=== PATIENT | female | born 1965 | race American Indian/Alaskan Native ===

== ENCOUNTER 2017-08-29 08:01 | Outpatient (CLI) | payer OTHER ==
--- NOTE | 2017-08-29 09:15 | XRay Report ---
Bilateral wrist: History: Wrist pain. Findings: No articular abnormality. No fracture or dislocation. Impression: Essentially negative right and left wrist.
== END 2017-08-29 08:02 | disposition home or self-care (01) ==
LOC: SPVIMAG 08:01
PROVIDERS: ATTEND Orthopaedic Surgery Sports Medicine
DX: M25.531 Pain in right wrist (principal); M25.532 Pain in left wrist

== ENCOUNTER 2020-04-04 12:10 | Outpatient (CLI) | payer BC ==
--- NOTE | 2020-04-04 13:06 | XRay Report ---
LEFT FOOT 3 VIEWS INDICATION: PAIN IN LEFT FOOT. COMPARISON: None. IMPRESSION: No acute osseous or soft tissue abnormality. Mild osteoarthritic narrowing is noted a t the first metatarsophalangeal joint. Mild osteoarthritic changes in the midfoot. Moderate plantar s pur. Signer Name: Samir Sanchez Jr, MD Signed: 04/04/2020 1:02 PM Workstation Name: [id number]
--- NOTE | 2020-04-04 13:57 | Ultrasound Report ---
ULTRASOUND THYROID INDICATION / CLINICAL INFORMATION: LOCALIZED SWELLING,MASS AND LUMP,NECK. COMPARISON: None available. FINDINGS: RIGHT LOBE: Size = 5.5 x 1.6 x 2.1 cm. - Echogenicity: Normal. - Nodules < 1 cm: Multiple subcentimeter cystic nodules are identified. - Nodules >= 1 cm or Suspicious Nodules: -- NODULE # 1 -- Location: right mid -- Size: 1.9 x 1.2 x 1.3 cm. Average size = 1.5 cm. -- Composition: Solid = 2 points -- Echogenicity: Hyperechoic or Isoechoic = 1 point -- Shape: [id number] = 3 points -- Margin: Lobulated or Irregular = 2 points -- Echogenic Foci: None = 0 points -- Additional Findings: Internal color flow is present within the nodule. -- ACR TI-RADS Score = 7+. -- ACR TI-RADS Category = TR-5 (7+ points). LEFT LOBE: Size = 3.8 x 1.4 x 1.5 cm. - Echogenicity: Normal. - Nodules < 1 cm: Scattered subcentimeter cystic nodules are present. - Nodules >= 1 cm or Suspicious Nodules: None. ISTHMUS: No significant abnormality. Thickness = 0.3 cm. - Nodules < 1 cm: None. - Nodules >= 1 cm or Suspicious Nodules: None. LYMPH NODES: No abnormal lymph nodes. PARATHYROID GLANDS: No abnormal parathyroid gland identified. ADDITIONAL FINDINGS: None. IMPRESSION: 1. Suspicious dominant right thyroid nodule as above. FNA biopsy is recommended for further evaluatio n. 2. Additional bilateral subcentimeter nodules without suspicious features. NOTE: Nodule size based on mean (average) size of 3 dimensions. NOTE: Nodules < 1 cm do not typically require follow-up or FNA unless there are suspicious features ( [facility], 2015) ACR TI-RADS Thyroid Nodule Recommendations TI-RADS 1 (0 points) ----- BENIGN. No Fine Needle Aspirate biopsy (FNA) or follow-up. TI-RADS 2 (1-2 points) -- NOT SUSPICIOUS. No FNA or follow-up. TI-RADS 3 (3 points) ----- MILDLY SUSPICIOUS. Follow up in 1 year if >= 1.5 cm. FNA if >= 2.5 cm. TI-RADS 4 (4-6 points) -- MODERATELY SUSPICIOUS. Follow up in 1 year if >= 1.0 cm. FNA if >= 1.5 cm. TI-RADS 5 (7+ points) --- HIGHLY SUSPICIOUS. Follow up in 1 year if >= 0.5 cm. FNA if >= 1.0 cm. Signer Name: Eric Maurer MD Signed: 04/04/2020 1:52 PM Workstation Name: [id number]
== END 2020-04-04 12:11 | disposition home or self-care (01) ==
LOC: US 12:10
PROVIDERS: ATTEND Family Medicine
DX: M18.9 Osteoarthritis of first carpometacarpal joint, unspecified (principal); M19.072 Primary osteoarthritis, left ankle and foot; M77.32 Calcaneal spur, left foot; R22.1 Localized swelling, mass and lump, neck
CPT/HCPCS: 76536